=== PATIENT | male | born 1990 | race American Indian/Alaskan Native ===

== ENCOUNTER 2022-04-16 12:56 | Emergency (ER) | payer SELFPAY ==
--- NOTE | 2022-04-16 15:59 | Emergency Department Report ---
ED Psych HPI - General Chief Complaint: Psych Stated Complaint: 1013 EVALUATION Time Seen by Provider: 04/16/22 15:42 Source: patient, police Mode of arrival: Ambulatory - History of Present Illness Initial Comments: Patient is 31 years old male with history of schizophrenia. Patient brought to the emergency room by police after patient was caught shoplifting and when they approached him patient started rambling and talking about being controlled by the [facility]. Patient is pointing to an old abrasion to the right arm stating that the foot chip in his arm so they can control him. Patient stated that he is assistance of [facility]. Patient is very delusional. Patient denied any suicidal or homicidal ideation. MD Complaint: altered mental status Associated Psychiatric Symptoms: racing thoughts Associated Symptoms: denies other symptoms Treatments Prior to Arrival: none - Related Data Home Medications Medication Instructions Recorded Confirmed Last Taken ALPRAZolam [Xanax] 2 mg PO QDAY 05/25/14 05/25/14 05/21/14 09:00 Ibuprofen [Motrin] 600 mg PO Q8H PRN 05/25/14 05/25/14 05/25/14 06:00 Previous Rx's Medication Instructions Recorded Last Taken Type ALPRAZolam [Xanax] 2 mg PO DAILY PRN #10 tablet 05/25/14 Unknown Rx Allergies Allergy/AdvReac Type Severity Reaction Status Date / Time No Known Allergies Allergy Verified 06/05/16 16:46 ED Review of Systems ROS: Stated complaint: 1013 EVALUATION Other details as noted in HPI Comment: All other systems reviewed and negative Constitutional: denies: chills, fever Respiratory: denies: cough, shortness of breath, SOB with exertion Cardiovascular: denies: chest pain, palpitations Gastrointestinal: denies: abdominal pain, nausea, vomiting, diarrhea, constipation, hematemesis, hematochezia Musculoskeletal: denies: back pain Neurological: denies: headache, weakness, numbness, paresthesias, abnormal gait ED Past Medical Hx - Past Medical History Hx Hypertension: Yes Hx Psychiatric Treatment: Yes Additional medical history: anxiety. depression. insommnia - Social History Smoking Status: Current Every Day Smoker Substance Use Type: None - Medications Home Medications: Home Medications Medication Instructions Recorded Confirmed Last Taken Type ALPRAZolam [Xanax] 2 mg PO DAILY PRN #10 tablet 05/25/14 Unknown Rx ALPRAZolam [Xanax] 2 mg PO QDAY 05/25/14 05/25/14 05/21/14 09:00 History Ibuprofen [Motrin] 600 mg PO Q8H PRN 05/25/14 05/25/14 05/25/14 06:00 History ED Physical Exam - General Limitations: No Limitations General appearance: alert, in no apparent distress - Head Head exam: Present: atraumatic, normocephalic, normal inspection - Eye Eye exam: Present: normal appearance - ENT ENT exam: Present: normal exam, normal orophraynx, mucous membranes moist - Neck Neck exam: Present: normal inspection, full ROM. Absent: tenderness, meningismus - Respiratory Respiratory exam: Present: normal lung sounds bilaterally - Cardiovascular Cardiovascular Exam: Present: regular rate, normal rhythm, normal heart sounds - GI/Abdominal GI/Abdominal exam: Present: soft, normal bowel sounds. Absent: distended, tenderness, guarding, rebound, rigid, organomegaly, mass, bruit, pulsatile mass, hernia - Extremities Exam Extremities exam: Present: normal inspection, full ROM, normal capillary refill. Absent: tenderness - Neurological Exam Neurological exam: Present: alert, oriented X3, CN II-XII intact, normal gait, motor sensory deficit - Psychiatric Psychiatric exam: Present: anxious. Absent: homicidal ideation, suicidal ideation - Skin Skin exam: Present: warm, intact, normal color ED Course Vital Signs 04/16/22 04/17/22 04/17/22 20:44 13:09 13:50 Temperature 97.6 F 98.8 F Pulse Rate 90 82 Respiratory 20 80 H Rate Blood Pressure 142/88 146/89 [Left] O2 Sat by Pulse 98 99 88 Oximetry ED Medical Decision Making - Lab Data Result diagrams: 04/17/22 07:11 04/17/22 07:11 Critical care attestation.: If time is entered above; I have spent that time in minutes in the direct care of this critically ill patient, excluding procedure time. ED Disposition Clinical Impression: Acute psychosis, Delusional disorder Disposition: [address] [place] [address] Is pt being admited?: No Condition: Stable
[2022-04-16] MEDS ORDERED: ZIPRASIDONE MESYLATE 20 MG VIAL IM ONE (17:19)
[2022-04-16] MEDS: LORazepam 2 MG/ML VIAL IV PRN (22:33)
[2022-04-17 07:24] LABS: Basophils # (Auto) 0.1 K/mm3 (0.0-0.1); Basophils % (Auto) 0.7 % (0.0-1.8); Eosinophils # (Auto) 0.1 K/mm3 (0.0-0.4); Eosinophils % (Auto) 0.6 % (0.0-4.3); Hematocrit 44.8 % (35.5-45.6); Hemoglobin 14.9 gm/dl (11.8-15.2); Lymphocytes # (Auto) 1.1 K/mm3 (1.2-5.4); Lymphocytes % (Auto) 9.4 % (13.4-35.0); Mean Corpuscular HGB Conc 33 % (32-34); Mean Corpuscular Volume 87 fl (84-94); Monocytes # (Auto) 0.7 K/mm3 (0.0-0.8); Monocytes % (Auto) 6.4 % (0.0-7.3); Platelet Count 336 K/mm3 (140-440); Red Blood Count 5.15 M/mm3 (3.65-5.03); Red Cell Distribution Width 14.6 % (13.2-15.2)
[2022-04-17 07:59] LABS: BUN/Creatinine Ratio 11; Blood Urea Nitrogen 11 mg/dL (9-20); Calcium 9.2 mg/dL (8.4-10.2); Hemolysis Index 3
[2022-04-17] MEDS ORDERED: ZIPRASIDONE MESYLATE 20 MG VIAL IM ONE (10:24)
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
[2022-04-17] MEDS ORDERED: diphenhydrAMINE 50 MG/ML VIAL IV ONE (12:10)
[2022-04-17] MEDS: DIVALPROEX DR 125 MG TAB PO SCH ×2 (12:25→22:39)
[2022-04-17] MEDS: risperiDONE 0.25 MG TAB PO SCH ×2 (12:26→22:39)
--- NOTE | 2022-04-17 13:51 | Emergency Department Report ---
Blank Doc - Documentation Documentation: S: Patient yelling and being aggressive requiring seclusion O: Vital Signs - 8 hr 04/17/22 04/17/22 13:09 13:50 Temperature 97.6 F 98.8 F Pulse Rate 90 82 Respiratory 20 80 H Rate Blood Pressure 142/88 146/89 [Left] O2 Sat by Pulse 99 88 Oximetry A: Schizophrenia P: 1013/awaiting inpatient psych
[2022-04-17] MEDS: DOXEPIN 10 MG CAP PO SCH (22:39)
[2022-04-18] MEDS: risperiDONE 0.25 MG TAB PO SCH (10:52)
[2022-04-18] MEDS: DIVALPROEX DR 125 MG TAB PO SCH (10:52)
[2022-04-18] MEDS: LORazepam 2 MG/ML VIAL IV PRN (11:37)
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
--- NOTE | 2022-04-18 12:07 | Emergency Department Report ---
Blank Doc - Documentation Documentation: S: No events reported overnight O: Vital Signs - 8 hr 04/18/22 15:31 Temperature 97.8 F Pulse Rate 98 H Respiratory 18 Rate Blood Pressure 123/67 [Left] O2 Sat by Pulse 99 Oximetry A: Schizophrenia P: 1013/awaiting inpatient psych
[2022-04-18 12:19] LABS: Bilirubin,Urine NEG (Negative); Blood,Urine NEG (Negative); Color,Urine Yellow (Yellow); Protein,Urine <15 mg/dL mg/dL (Negative)
[2022-04-18 12:28] LABS: Hyaline Casts,Urine 3 /LPF; Mucus,Urine 1+ /HPF
[2022-04-18] MEDS ORDERED: DIVALPROEX DR 250 MG TAB PO SCH (22:00)
[2022-04-18] MEDS: DOXEPIN 10 MG CAP PO SCH (22:04)
[2022-04-18] MEDS: risperiDONE 1 MG TAB PO SCH (22:04)
[2022-04-19] MEDS: LORazepam 2 MG/ML VIAL IV PRN ×2 (05:30→23:06)
[2022-04-19] MEDS ORDERED: LIP THERAPY VASELINE TP PRN (07:27)
--- NOTE | 2022-04-19 08:30 | Progress Note ---
Subjective - Reason for Consult Consult date: 04/19/22 Reason for consult: psychosis - Chief Complaint Chief complaint: The patient was seen today. He is irritable and paranoid. He is also grandiose. He says he is a "royal." He says "I'm not going to explain it because I don't think you'll understand it." I ask the patient if he had family and where did he live, to assess his insight. He replies "I'm moving out of [place]. I don't want to provide you with the address." He denies SI/HI or hallucinations of any kind. REVIEW OF SYSTEMS Unable to obtain MENTAL STATUS EXAMINATION Unable to obtain ASSESSMENT Schizophrenia Treatment Plan [address] 500mg po BID Risperidone 1mg po BID Doxepoin 10mg po qhs Sitter: Defer to medical Medical: Per [facility] Disposition: Recommend acute psychiatric inpatient treatment Will follow. Thanks Case staffed with Dr. Bruner Mental Status Exam - Vital signs Last Vital Signs Temp 98.6 F 04/18/22 20:14 Pulse 109 H 04/18/22 20:14 Resp 16 04/18/22 20:14 BP 143/88 04/18/22 20:14 Pulse Ox 96 04/18/22 20:14
[2022-04-19] MEDS: DIVALPROEX DR 500 MG TAB PO SCH ×2 (09:44→22:42)
[2022-04-19] MEDS: risperiDONE 1 MG TAB PO SCH ×2 (09:44→22:43)
--- NOTE | 2022-04-19 11:37 | Emergency Department Report ---
Blank Doc - Documentation Documentation: This patient initially presented on 04/16 for acute psychosis after he was picked up while shoplifting. He was made a 1013 secondary to his delusions and psychosis. Labs have been reviewed and are unremarkable or at least nonactionable. Vital signs reassuring including being afebrile. He was seen by behavioral health again today and they still recommend inpatient stabilization and have titrated his psychiatric medications. No events/incident signed out from overnight by the ED psychiatric nurse Blessing. We will continue to monitor this patient during his ED course.
[2022-04-19 15:28] LABS: Amphetamine Screen,Urine Negative; Benzodiazepines Screen,Urine Negative; Cocaine Screen,Urine Negative; Methadone Screen,Urine Negative; Opiate Screen,Urine Negative
[2022-04-19 15:45] LABS: Cannabinoid Screen,Urine Positive
[2022-04-19] MEDS: DOXEPIN 10 MG CAP PO SCH (22:43)
[2022-04-19] MEDS ORDERED: ACETAMINOPHEN 500 MG TAB PO ONE (23:19)
[2022-04-20] MEDS: DIVALPROEX DR 500 MG TAB PO SCH ×2 (09:54→22:00)
[2022-04-20] MEDS: risperiDONE 1 MG TAB PO SCH (09:54)
[2022-04-20 12:14] LABS: Basophils # (Auto) 0.1 K/mm3 (0.0-0.1); Basophils % (Auto) 0.9 % (0.0-1.8); Eosinophils # (Auto) 0.1 K/mm3 (0.0-0.4); Eosinophils % (Auto) 1.4 % (0.0-4.3); Hematocrit 45.8 % (35.5-45.6); Hemoglobin 15.1 gm/dl (11.8-15.2); Lymphocytes # (Auto) 1.7 K/mm3 (1.2-5.4); Lymphocytes % (Auto) 20.7 % (13.4-35.0); Mean Corpuscular HGB Conc 33 % (32-34); Mean Corpuscular Volume 87 fl (84-94); Monocytes # (Auto) 0.5 K/mm3 (0.0-0.8); Monocytes % (Auto) 6.4 % (0.0-7.3); Platelet Count 375 K/mm3 (140-440); Red Blood Count 5.25 M/mm3 (3.65-5.03); Red Cell Distribution Width 14.9 % (13.2-15.2)
--- NOTE | 2022-04-20 12:36 | Progress Note ---
Subjective - Reason for Consult Consult date: 04/20/22 Reason for consult: mental health evaluation - Chief Complaint Chief complaint: The patient was seen today. He continues be disorganized and grandiose stating " I'm / nickie. The patient has poor insight. He denies SI/HI or hallucinations of any kind. REVIEW OF SYSTEMS Unable to obtain MENTAL STATUS EXAMINATION Unable to obtain ASSESSMENT Schizophrenia Treatment Plan [address] 500mg po BID Continue Risperidone 1mg po BID Continue Doxepoin 10mg po qhs Sitter: Defer to medical Medical: Per [facility] Disposition: Recommend acute psychiatric inpatient treatment Will follow. Thanks Case staffed with Dr. Bruner Mental Status Exam - Vital signs Last Vital Signs Temp 98.5 F 04/19/22 20:30 Pulse 73 04/19/22 20:30 Resp 18 04/19/22 20:30 BP 126/86 04/19/22 20:30 Pulse Ox 98 04/20/22 09:22
[2022-04-20] MEDS: LORazepam 2 MG/ML VIAL IV PRN (15:57)
--- NOTE | 2022-04-20 16:09 | Emergency Department Report ---
Blank Doc - Documentation Documentation: Chart reviewed 31-year-old male with schizophrenia with delusions currently on 1013. Awaiting placement. As per MAR review patient is refusing most of the medication doses ordered by psych. pRN IM Geodon is ordered. LICENSED MENTAL HEALTH COUNSELOR Rc Nguyen informed that pt is refusing oral medications and will need an IM alternative. SHe will review chart
[2022-04-20] MEDS: HALOPERIDOL 5 MG TAB PO SCH (22:00)
[2022-04-20] MEDS: HALOPERIDOL LACTATE 5 MG/1 ML INJ IM SCH (22:00)
[2022-04-21] MEDS: ZIPRASIDONE MESYLATE 20 MG VIAL IM PRN ×2 (05:08→10:29)
[2022-04-21] MEDS: HALOPERIDOL 5 MG TAB PO SCH ×2 (09:57→22:00)
[2022-04-21] MEDS: HALOPERIDOL LACTATE 5 MG/1 ML INJ IM SCH ×2 (09:57→22:00)
[2022-04-21] MEDS: DIVALPROEX DR 500 MG TAB PO SCH ×2 (09:57→22:00)
--- NOTE | 2022-04-21 10:17 | Progress Note ---
Subjective - Reason for Consult Consult date: 04/21/22 Reason for consult: mental health evaluation - Chief Complaint Chief complaint: The patient was seen today. He continues be disorganized " I don't like psychotropic medications." The patient has poor insight. He denies SI/HI or hallucinations of any kind. REVIEW OF SYSTEMS Unable to obtain MENTAL STATUS EXAMINATION Unable to obtain ASSESSMENT Schizophrenia Treatment Plan 1013 Start Haldol 5mg po BID, give IM if patient refuse po. Sitter: Defer to medical Medical: Per primary Disposition: Recommend acute psychiatric inpatient treatment Will follow. Thanks Case staffed with Dr. Bruner Mental Status Exam - Vital signs Last Vital Signs Temp 98.4 F 04/21/22 10:01 Pulse 78 04/21/22 10:01 Resp 16 04/21/22 10:01 BP 130/80 04/21/22 10:01 Pulse Ox 97 04/21/22 10:01
--- NOTE | 2022-04-21 12:18 | Event Note ---
Date: 04/21/22 The patient was evaluated in the emergency department for symptoms described in the history of present illness. He/she was evaluated in the context of the global COVID-19 pandemic, which necessitated consideration that the patient might be at risk for infection with the virus that causes COVID-19. Institutional protocols and algorithms that pertain to the evaluation of patients at risk for COVID-19 are in a state of rapid change based on information released by regulatory bodies including the CDC and federal and state organizations. These policies and algorithms were followed during the patient's care in the emergency department. Please note that these policies, procedures and recommendations changed on a rapid basis. Laboratory studies, vital signs, nursing documentation, ER documentation, and psychiatric documentation are reviewed and appreciated. Nursing team reports that patient refuses medications, and is agitated and lacking decision-making capacity. The patient is psychotic and lacks decision-making capacity and does not possess cognitive capacity to refuse recommended medical therapy/psychiatric there. Appropriate as needed medications have been ordered by the psychiatry team. We will continue multivitamins, daily potassium and daily magnesium supplementation. The patient was deemed medically suitable for psychiatric disposition and placement during his initial ER evaluation. The patient continues to remain medically suitable for psychiatric placement and disposition. He is currently pending psychiatric placement.
[2022-04-21] MEDS: MULTIVITAMINS ,THERAPEUTIC TAB PO SCH (13:13)
[2022-04-21] MEDS: MAGNESIUM OXIDE 400 MG TAB PO SCH (13:13)
[2022-04-21] MEDS: POTASSIUM CHLORIDE ER 20 MEQ TAB PO SCH (13:13)
[2022-04-21] MEDS: LORazepam 2 MG/ML VIAL IV PRN (20:19)
--- NOTE | 2022-04-22 09:26 | Progress Note ---
Subjective - Reason for Consult Consult date: 04/22/22 Reason for consult: mental health evaluation - Chief Complaint Chief complaint: The patient was seen today. He continues be disorganized and grandiose. The patient has poor insight. He denies SI/HI or hallucinations. Per nurse, the patient was being disruptive pressing the exit button several times last night. REVIEW OF SYSTEMS Unable to obtain MENTAL STATUS EXAMINATION Unable to obtain ASSESSMENT Schizophrenia Treatment Plan 1013 Start Haldol 5mg po BID, give IM if patient refuse po. Sitter: Defer to medical Medical: Per primary Disposition: Recommend acute psychiatric inpatient treatment Will follow. Thanks Case staffed with Dr. Bruner Mental Status Exam - Vital signs Last Vital Signs Temp 97.3 F L 04/21/22 20:24 Pulse 59 L 04/21/22 20:24 Resp 18 04/21/22 20:24 BP 128/76 04/21/22 20:24 Pulse Ox 97 04/22/22 08:53
[2022-04-22] MEDS: MULTIVITAMINS ,THERAPEUTIC TAB PO SCH (10:16)
[2022-04-22] MEDS: HALOPERIDOL 5 MG TAB PO SCH (10:16)
[2022-04-22] MEDS: DIVALPROEX DR 500 MG TAB PO SCH (10:16)
[2022-04-22] MEDS: HALOPERIDOL LACTATE 5 MG/1 ML INJ IM SCH (10:16)
[2022-04-22] MEDS: MAGNESIUM OXIDE 400 MG TAB PO SCH (10:16)
[2022-04-22] MEDS: POTASSIUM CHLORIDE ER 20 MEQ TAB PO SCH (10:16)
[2022-04-22 10:38] VITALS: BP 117/76
== END 2022-04-22 11:38 ==
LOC: ED 12:56 → EEVIPCON 12:56 → ED 04-22 11:38
DX: F23 Brief psychotic disorder (principal); F22 Delusional disorders; Z20.822 Contact with and (suspected) exposure to COVID-19; I10 Essential (primary) hypertension; F41.9 Anxiety disorder, unspecified; F32.9 Major depressive disorder, single episode, unspecified; G47.00 Insomnia, unspecified; F17.290 Nicotine dependence, other tobacco product, uncomplicated
CPT/HCPCS: 36415; 80048; 80307; 81001; 84132; 85025; 96372; 96374; 96375; 99284; J1200; J2060; J3486; U0003; 80320; G0480; J1630